=== PATIENT | male | born 1965 | race Two or more races ===

== ENCOUNTER 2016-12-09 20:06 | Emergency (ER) | payer OTHER ==
[~2016-12-09] VITALS: Ht 177.8 cm; Wt 77.1 kg
--- NOTE | 2016-12-09 20:16 | NUR ---
PT BIBRA FROM HOME. C/O ABDOMINAL DISCOMFORT, CRAMPING W/ N/V SINCE THIS AM. PT ADMITS TO DRINKING LAST NIGHT. GOWNED AND PLACED ON MONITOR. STABLE VITALS. AWAITING MD SETHI.
--- NOTE | 2016-12-09 20:18 | NUR ---
DR BERRY AT BEDSIDE FOR EVAL.
[2016-12-09] MEDS ORDERED: MORPHINE SULFATE INJ 4 MG/ML DISP.SYRIN ONE (20:19)
[2016-12-09] MEDS ORDERED: IV SET PRIMARY 1 EA INFUS.SET MC ONE (20:19)
[2016-12-09] MEDS ORDERED: IV NS 0.9% 1,000 ML ONE (20:19)
[2016-12-09] MEDS ORDERED: ONDANSETRON HCL/PF 4 MG/2 ML VIAL ONE (20:19)
[2016-12-09] MEDS ORDERED: LORAZEPAM INJ 2 MG/ML VIAL ONE (20:20)
[2016-12-09] MEDS ORDERED: PANTOPRAZOLE 40 MG VIAL ONE (20:20)
--- NOTE | 2016-12-09 20:20 | NUR ---
IV LINE STARTED BLOOD DRAWN AND SENT TO LAB.
[2016-12-09 20:26] LABS: BASOPHILS % (AUTO) 0.3 % (0.0-2.0); EOSINOPHILS % (AUTO) 0.2 % (0.0-6.0); HEMATOCRIT 43 % (39-51); HEMOGLOBIN 14.6 g/dL (13.5-17.5); LYMPHOCYTES # (AUTO) 0.5 /CMM (0.8-4.8); LYMPHOCYTES % (AUTO) 13.6 % (20.0-44.0); MEAN CORPUSCULAR HEMOGLOBIN 35 PG (26.0-33.0); MEAN CORPUSCULAR HGB CONC 34 g/dl (31.0-36.0); MEAN CORPUSCULAR VOLUME 103 fL (80-96); MONOCYTES # (AUTO) 0.2 /CMM (0.1-1.30); MONOCYTES % (AUTO) 4.7 % (2.0-12.0); NEUTROPHILS % (AUTO) 81.2 % (43.0-81.0); PLATELET COUNT (AUTO) 102 /CMM (150-450); RDW COEFFICIENT OF VARIATION 13.4 (11.5-15.0); RED BLOOD CELL COUNT(AUTO) 4.17 MIL/uL (4.5-6.0); WHITE BLOOD COUNT (AUTO) 3.7 K/uL (4.3-11.0)
[2016-12-09] MEDS ORDERED: ONDANSETRON HCL/PF 4 MG/2 ML VIAL IVP ONE (20:30)
[2016-12-09] MEDS ORDERED: IV NS 0.9% 1,000 ML BAG IV ONE (20:30)
[2016-12-09] MEDS ORDERED: PANTOPRAZOLE 40 MG VIAL IV ONE (20:30)
[2016-12-09] MEDS ORDERED: LORAZEPAM INJ 2 MG/ML VIAL IV ONE (20:30)
[2016-12-09] MEDS ORDERED: MORPHINE SULFATE INJ 2 MG/ML DISP.SYRIN IV ONE (20:30)
[2016-12-09 20:36] LABS: CALCIUM, SERUM 9.1 mg/dL (8.5-10.1)
[2016-12-09 20:42] LABS: ALBUMIN 4.4 g/dL (3.4-5.0); BILIRUBIN,DIRECT 0.4 mg/dL (0.0-0.2); BILIRUBIN,TOTAL 1.4 mg/dL (0.2-1.0); TOTAL PROTEIN, SERUM 7.7 g/dL (6.4-8.2)
--- NOTE | 2016-12-09 21:43 | NUR ---
U/S TECH AT BEDSIDE FOR GALLBLADDER ULTRASOUND.
--- NOTE | 2016-12-09 22:36 | NUR ---
Patient discharged to home in stable condition. Written and verbal after care instructions given. Patient verbalizes understanding of instruction.IV removed. Catheter intact and site benign. Pressure and 4x4 applied to site. No bleeding noted.
[2016-12-09 22:37] VITALS: BP 128/64
== END 2016-12-09 22:38 | disposition home or self-care (01) ==
LOC: ER 20:07
DX: K70.10 Alcoholic hepatitis without ascites (principal); F10.20 Alcohol dependence, uncomplicated
CPT/HCPCS: 36415; 76705; 80048; 80076; 83690; 85025; 96374; 96375; 99285; A4606; C9113; J2060; J2270; J2405; J7030; Z7610

== ENCOUNTER 2017-07-21 12:27 | Emergency (ER) | payer OTHER ==
[~2017-07-21] VITALS: Ht 185.4 cm; Wt 77.1 kg
[2017-07-21 12:30] VITALS: BP 109/89
[2017-07-21] MEDS ORDERED: TRIAMCINOLONE ACETONIDE SUSP 40 MG/ML VIAL IM ONE (13:00)
== END 2017-07-21 13:20 | disposition home or self-care (01) ==
LOC: ER 12:29
DX: R21 Rash and other nonspecific skin eruption (principal); E11.9 Type 2 diabetes mellitus without complications; F10.10 Alcohol abuse, uncomplicated
CPT/HCPCS: 99283; A4606; Z7610; J3301

== ENCOUNTER 2017-11-06 09:42 | Emergency (ER) | payer OTHER ==
[~2017-11-06] VITALS: Ht 185.4 cm; Wt 77.1 kg
[2017-11-06] MEDS ORDERED: IV NS 0.9% 1,000 ML BAG IV ONE (10:30)
[2017-11-06 10:41] LABS: BASOPHILS % (AUTO) 0.4 % (0.0-2.0); EOSINOPHILS # (AUTO) 0.1 /CMM (0.0-0.7); EOSINOPHILS % (AUTO) 3.2 % (0.0-6.0); HEMATOCRIT 38 % (39-51); LYMPHOCYTES # (AUTO) 0.9 /CMM (0.8-4.8); LYMPHOCYTES % (AUTO) 27.9 % (20.0-44.0); MEAN CORPUSCULAR HEMOGLOBIN 34 PG (26.0-33.0); MEAN CORPUSCULAR HGB CONC 35 g/dl (31.0-36.0); MEAN CORPUSCULAR VOLUME 100 fL (80-96); MONOCYTES # (AUTO) 0.3 /CMM (0.1-1.30); MONOCYTES % (AUTO) 8.8 % (2.0-12.0); NEUTROPHILS % (AUTO) 59.7 % (43.0-81.0); PLATELET COUNT (AUTO) 184 /CMM (150-450); RDW COEFFICIENT OF VARIATION 11.5 (11.5-15.0); RED BLOOD CELL COUNT(AUTO) 3.79 MIL/uL (4.5-6.0); WHITE BLOOD COUNT (AUTO) 3.3 K/uL (4.3-11.0)
[2017-11-06 10:50] LABS: CALCIUM, SERUM 8.7 mg/dL (8.5-10.1); CREATININE 0.7 mg/dL (0.6-1.3); POTASSIUM 3.8 mmol/L (3.5-5.1)
[2017-11-06] MEDS ORDERED: KETOROLAC TROMETHAMINE INJ 30 MG/ML VIAL ONE (11:29)
[2017-11-06] MEDS ORDERED: ONDANSETRON HCL/PF 4 MG/2 ML VIAL ONE (11:30)
[2017-11-06] MEDS ORDERED: KETOROLAC TROMETHAMINE INJ 30 MG/ML VIAL IV ONE (11:30)
[2017-11-06] MEDS ORDERED: ONDANSETRON HCL/PF 4 MG/2 ML VIAL IV ONE (11:30)
[2017-11-06 12:33] VITALS: BP 111/68
== END 2017-11-06 13:13 | disposition home or self-care (01) ==
LOC: ER 09:43
DX: R42 Dizziness and giddiness (principal); E11.9 Type 2 diabetes mellitus without complications
CPT/HCPCS: 36415; 71045-TC; 80048-TC; 84484-TC; 85025-TC; 87400; A4606; J1885; J2405; J7030; Z7610

== ENCOUNTER 2019-11-15 23:44 | Emergency (ER) | payer BC, OTHER ==
[~2019-11-15] VITALS: Ht 185.4 cm; Wt 77.1 kg
[2019-11-15 23:49] VITALS: BP 145/105
[2019-11-16] MEDS ORDERED: HYDROCODONE/APAP 5/325MG 1 EACH TABLET PO ONE
[2019-11-16] MEDS ORDERED: HYDROCODONE/APAP 5/325MG 1 EACH TABLET ONE (00:06)
== END 2019-11-16 00:24 | disposition home or self-care (01) ==
LOC: ER 23:45
DX: K13.79 Other lesions of oral mucosa (principal); E11.9 Type 2 diabetes mellitus without complications